=== PATIENT | female | born 1945 | race Two or more races ===

== ENCOUNTER 2021-05-10 06:20 | Day surgery (SDC) | payer OTHER ==
[~2021-05-10 06:20] MED LIST: COZAAR25 MG PO; NASAL MIST126 ML; OMEGA 3 1,0001 EACH PO; SYNTHROID112 MCG PO
== END 2021-05-10 15:30 | disposition home or self-care (01) ==
LOC: CIR.AMB 06:20 → EDBD 15:00 → CIR.AMB 15:00
PROVIDERS: ATTEND Surgery
DX: N60.92 Unspecified benign mammary dysplasia of left breast (principal); I10 Essential (primary) hypertension; E78.5 Hyperlipidemia, unspecified